=== PATIENT | female | born 1990 | race Caucasian/White ===

== ENCOUNTER 2017-01-23 21:13 | Emergency (ER) | payer SELFPAY ==
[~2017-01-23] VITALS: Ht 165.1 cm; Wt 63.5 kg
[~2017-01-23 21:13] MED LIST: ALLEGRA180 MG PO; AMOXICILLIN500 M2 PO; AMOXICILLIN500 MG PO; ANAPROX DS550 MG PO; BACTRIM DS 8001 TA1 PO; CIPRO500 MG PO; IBUPROFEN600 MG PO; KEFLEX500 MG PO; MOTRIN800 MG PO; Motrin,Rufen800 MG PO; NAPROSYN500 MG PO; NKHM; NORCO 325 MG-51 TAB PO; PENICILLIN VK500 MG PO; PHENERGAN W/DM120 ML PO; PREDNICOT10 MG PO; PRENATAL1 TA1 PO; PRENATAL1 TA3 PO; PROAIR HFA0.09 MG/AC INH; PYRIDIUM200 M1 PO; TOBREX OPHTH S2.5 ML OPH; TRAMADOL HCL50 MG PO; ULTRAM50 MG PO; Zofran4 MG PO
[2017-01-23] MEDS ORDERED: PRENATAL1 TA7 PO (21:19)
[2017-01-23] MEDS ORDERED: CEPHALEXIN500 M1 PO (21:32)
== END 2017-01-23 21:40 | disposition home or self-care (01) ==
LOC: ED 21:13
DX: O26.891 Other specified pregnancy related conditions, first trimester (principal); L02.412 Cutaneous abscess of left axilla; Z3A.10 10 weeks gestation of pregnancy

== ENCOUNTER 2017-01-29 10:39 | Emergency (ER) | payer SELFPAY ==
[~2017-01-29] VITALS: Ht 165.1 cm; Wt 63.5 kg
[~2017-01-29 10:39] MED LIST changes: +CEPHALEXIN500 M1 PO; +PRENATAL1 TA7 PO
[2017-01-29 11:13] LABS: BASO % 0.3 % (0.0-1.0); EOS # 0.1 10*3/uL (0.0-0.4); HEMOGLOBIN 14.2 g/dl (12.0-16.0); LYMPH # 1.9 10*3/uL (1.3-4.4); LYMPH % 30.5 % (27.0-41.0); MEAN CELL VOLUME 89.8 fl (81.0-99.0); MEAN CORPUSCULAR HGB 29.6 pg (27.0-31.0); MEAN PLATELET VOLUME 9.2 fl (9.6-12.3); MONO # 0.4 10*3/uL (0.1-1.0); MONO % 5.7 % (3.0-9.0); NEUT # 3.8 10*3/uL (2.3-7.9); NEUT % 62.3 % (47.0-73.0); PLATELET COUNT AUTOMATED 236 10*3/uL (130-400); RED BLOOD COUNT 4.79 10*6/uL (4.10-5.10); RED CELL DISTRI WIDTH 12.3 % (0-14.5); WHITE BLOOD COUNT 6.1 10*3/uL (4.8-10.8)
[2017-01-29 11:16] LABS: BILIRUBIN NEGATIVE (NEGATIVE); BLOOD 3+ (NEGATIVE); CLARITY SL CLOUDY (CLEAR); COLOR YELLOW (YELLOW); GLUCOSE NEGATIVE (NEGATIVE); KETONE NEGATIVE (NEGATIVE); LEUKO ESTERASE NEGATIVE (NEGATIVE); NITRITE NEGATIVE (NEGATIVE); PH 6.5 (5.0-9.0); PROTEIN NEGATIVE (NEGATIVE); UROBILINOGEN 0.2 E.U./dl (0.2-1.0)
[2017-01-29 11:26] LABS: ALBUMIN 3.6 gm/dl (3.1-4.5); BILIRUBIN, TOTAL 0.3 mg/dl (0.2-1.0); BUN 12 mg/dl (7-24); CARBON DIOXIDE 27 mmol/L (21-32); CHLORIDE 104 mmol/L (98-107); EST GLOM FILT AFRICAN AMERICAN > 60 ml/min; GLUCOSE 89 mg/dL (65-99); POTASSIUM 3.9 mmol/L (3.5-5.1); SGOT/AST 17 IU/L (3-35); SGPT/ALT 18 U/L (12-78); SODIUM 138 mmol/L (136-145); TOTAL PROTEIN 7.9 gm/dL (6.4-8.2)
[2017-01-29 11:30] LABS: URINE REFLEX COMMENT YES (NO)
[2017-01-29 11:46] LABS: ALKALINE PHOSPHATASE 46 U/L (45-117)
== END 2017-01-29 14:18 | disposition home or self-care (01) ==
LOC: ED 10:39
PROVIDERS: Nurse Practitioner Family
DX: O02.1 Missed abortion (principal); Z3A.12 12 weeks gestation of pregnancy

== ENCOUNTER 2017-05-13 11:31 | Inpatient (IN) | payer SELFPAY ==
[~2017-05-13] VITALS: Ht 165.1 cm; Wt 71.8 kg
[2017-05-13 11:46] VITALS: BP 113/79
[2017-05-13 12:10] LABS: BILIRUBIN NEGATIVE (NEGATIVE); BLOOD 3+ (NEGATIVE); CLARITY CLOUDY (CLEAR); COLOR YELLOW (YELLOW); GLUCOSE NEGATIVE (NEGATIVE); KETONE NEGATIVE (NEGATIVE); LEUKO ESTERASE 2+ (NEGATIVE); NITRITE POSITIVE (NEGATIVE); UROBILINOGEN 0.2 E.U./dl (0.2-1.0)
[2017-05-13 12:23] LABS: BACTERIA 4+; RBC TNTC rbc/hpf (0-2); WBC TNTC wbc/hpf (0-5)
[2017-05-13 12:50] VITALS: BP 116/67
[2017-05-13 12:52] LABS: BASO % 0.2 % (0.0-1.0); EOS % 0.1 % (1.0-4.0); HEMATOCRIT 36.9 % (37.0-47.0); LYMPH # 0.9 10*3/uL (1.3-4.4); LYMPH % 5.5 % (27.0-41.0); MEAN CELL VOLUME 88.3 fl (81.0-99.0); MEAN CORPUSCULAR HGB 28.7 pg (27.0-31.0); MEAN CORPUSCULAR HGB CONC 32.5 g/dl (33.0-37.0); MEAN PLATELET VOLUME 9.4 fl (9.6-12.3); MONO # 1.2 10*3/uL (0.1-1.0); MONO % 7.5 % (3.0-9.0); NEUT # 14.2 10*3/uL (2.3-7.9); NEUT % 86.4 % (47.0-73.0); PLATELET COUNT AUTOMATED 190 10*3/uL (130-400); RED BLOOD COUNT 4.18 10*6/uL (4.10-5.10); RED CELL DISTRI WIDTH 12.2 % (0-14.5); WHITE BLOOD COUNT 16.4 10*3/uL (4.8-10.8)
[2017-05-13 13:04] LABS: ALBUMIN 3.1 gm/dl (3.1-4.5); ALKALINE PHOSPHATASE 80 U/L (45-117); BUN 13 mg/dl (7-24); CHLORIDE 103 mmol/L (98-107); CREATININE 0.86 mg/dL (0.55-1.02); LIPASE 133 U/L (73-393); SGOT/AST 15 IU/L (3-35); SGPT/ALT 21 U/L (12-78); SODIUM 138 mmol/L (136-145); TOTAL PROTEIN 7.5 gm/dL (6.4-8.2)
[2017-05-13 13:06] LABS: BETA-HCG, QUANT < 1.0 mIU/mL (1-3)
[2017-05-13 15:35] VITALS: BP 119/58
[2017-05-13 15:58] VITALS: BP 105/55
--- NOTE | 2017-05-13 16:23 | NUR ---
A 27, admitted to , under the services of IRMA Allen DO with a diagnosis of PYELONEPHRITIS SEPSIS. Chief complaint is PYELONEPHRITIS SEPSIS. Patient arrived via bed from ER. Monitor applied. Initial assessment completed. Vital signs taken and recorded. IRMA ALLEN DO notified of admission to the unit. Orders received. See assessment for past medical history, medications and allergies. Patient and/or family oriented to unit. [facility] reviewed. Clothing/patient valuable form completed. ANGELA CARY
[2017-05-13 16:48] VITALS: BP 106/76
[2017-05-13 20:00] VITALS: BP 116/56
--- NOTE | 2017-05-13 20:00 | NUR ---
PT SITTING UP IN BED WITH C/O RUQ PAIN RATED 9/10. PT STATES PAIN IS SHARP DURING INSPIRATION. PT IS OTHERWISE CONTENT AND HAS NO OTHER NEEDS AT THIS TIME.
--- NOTE | 2017-05-13 20:28 | NUR ---
PT MEDICATED WITH NORCO FOR PAIN AND TEMPERATURE OF 100.3.
[2017-05-14] VITALS: BP 110/45
--- NOTE | 2017-05-14 04:20 | NUR ---
PT UNCOMFORTABLE AND UNABLE TO SLEEP D/T ABD PAIN. GIVEN MORPHINE AND RESTORIL.
[2017-05-14 05:43] LABS: ALBUMIN 2.6 gm/dl (3.1-4.5); ALKALINE PHOSPHATASE 68 U/L (45-117); BUN 6 mg/dl (7-24); CHLORIDE 109 mmol/L (98-107); CHOLESTEROL 100 mg/dL (<200); CREATININE 0.75 mg/dL (0.55-1.02); HDL CHOLESTEROL 53 mg/dl (40-60); LDL CHOLESTEROL 39 mg/dL (9-159); PHOSPHOROUS 2.3 mg/dL (2.5-4.9); POTASSIUM 3.8 mmol/L (3.5-5.1); SGOT/AST 11 IU/L (3-35); SGPT/ALT 17 U/L (12-78); SODIUM 144 mmol/L (136-145); TOTAL PROTEIN 6.3 gm/dL (6.4-8.2); TRIGLYCERIDES 40 mg/dl (<150); VLDL CHOLESTEROL 8 mg/dL (6-40)
[2017-05-14 05:48] LABS: THYROID STIM HORMONE (HS) 0.889 uIU/ml (0.358-4.75)
[2017-05-14 05:58] LABS: BASO % 0.2 % (0.0-1.0); EOS % 0.2 % (1.0-4.0); HEMATOCRIT 31.3 % (37.0-47.0); HEMOGLOBIN 10.3 g/dl (12.0-16.0); LYMPH # 1.8 10*3/uL (1.3-4.4); LYMPH % 15.9 % (27.0-41.0); MEAN CELL VOLUME 89.2 fl (81.0-99.0); MEAN CORPUSCULAR HGB 29.3 pg (27.0-31.0); MEAN CORPUSCULAR HGB CONC 32.9 g/dl (33.0-37.0); MEAN PLATELET VOLUME 9.5 fl (9.6-12.3); MONO # 1.5 10*3/uL (0.1-1.0); MONO % 12.6 % (3.0-9.0); NEUT # 8.2 10*3/uL (2.3-7.9); NEUT % 70.8 % (47.0-73.0); PLATELET COUNT AUTOMATED 178 10*3/uL (130-400); RED BLOOD COUNT 3.51 10*6/uL (4.10-5.10); RED CELL DISTRI WIDTH 12.1 % (0-14.5); WHITE BLOOD COUNT 11.6 10*3/uL (4.8-10.8)
[2017-05-14 06:54] LABS: VITAMIN D, 25-HYDROXY 8.5 ng/mL (30-100)
[2017-05-14 08:00] VITALS: BP 112/57
--- NOTE | 2017-05-14 08:00 | NUR ---
ASSUMED CARE OF PATIENT. SHE IS IN BED, AWAKE AND ALERT.
--- NOTE | 2017-05-14 08:13 | NUR ---
PT RECEIVED NORCO FOR PAIN STATED 9/10 IN RIGHT ABDOMEN.
--- NOTE | 2017-05-14 09:56 | NUR ---
PT STATES NORCO WAS EFFECTIVE.
--- NOTE | 2017-05-14 10:10 | NUR ---
PT RECEIVED MORPHINE FOR PAIN THAT WAS NOT RELIEVED BY NORCO. STATES PAIN IS RATED 8/10 STILL.
--- NOTE | 2017-05-14 10:15 | NUR ---
PT C/O RETURNING PAIN. MORPHINE GIVEN FOR PAIN RATED 9/10.
--- NOTE | 2017-05-14 11:01 | NUR ---
PT STATES MORPHINE HELPED SOME.
[2017-05-14 12:00] VITALS: BP 103/50
--- NOTE | 2017-05-14 12:15 | NUR ---
PT RECEIVED NORCO FOR PAIN RATED 9/10 IN THE ABDOMEN.
--- NOTE | 2017-05-14 13:00 | NUR ---
PT STATES DEMETRIA HELPED TAKE THE EDGE OFF HER PAIN.
[2017-05-14 16:00] VITALS: BP 116/57
--- NOTE | 2017-05-14 16:36 | NUR ---
PT RECEIVED NORCO FOR ABDOMINAL PAIN RATED 9/10.
--- NOTE | 2017-05-14 17:20 | NUR ---
PT STATES NORCO TOOK EDGE OFF, BUT STILL IN PAIN.
--- NOTE | 2017-05-14 17:41 | NUR ---
PT RECEIVED MORPHINE FOR PAIN IN ABDOMEN RATED AT 8/10.
--- NOTE | 2017-05-14 18:23 | NUR ---
PT STATES MORPHINE WAS EFFECTIVE.
[2017-05-14 20:00] VITALS: BP 120/60
--- NOTE | 2017-05-14 20:44 | NUR ---
MEDICATED WITH NORCO FOR C/O KIDNEY PAIN.
--- NOTE | 2017-05-14 21:45 | NUR ---
RESTING IN BED; VOICES NO C/O AT THIS TIME.
--- NOTE | 2017-05-14 22:13 | NUR ---
MEDICATED WITH MS FOR C/O PAIN RATED 8/10.
[2017-05-15] VITALS: BP 106/56
--- NOTE | 2017-05-15 | NUR ---
PT'S IV OCCLUDED; SEVERAL ATTEMPTS TO RESTART IV MADE. PT. CRYING & SWEARING WHILE ATTEMPTING TO RESTART IV. UNABLE TO RESTART IV AT THIS TIME. WILL CALL
--- NOTE | 2017-05-15 00:20 | NUR ---
CALLED DR. OROZCO PERTAINING TO BEING UNABLE TO RESTART IV. PO CIPRO ORDERED.
--- NOTE | 2017-05-15 05:48 | NUR ---
MEDICATED WITH NORCO FOR C/O PAIN.
[2017-05-15 06:25] LABS: BASO % 0.3 % (0.0-1.0); EOS # 0.1 10*3/uL (0.0-0.4); EOS % 0.5 % (1.0-4.0); HEMATOCRIT 31.9 % (37.0-47.0); HEMOGLOBIN 10.3 g/dl (12.0-16.0); LYMPH # 2.1 10*3/uL (1.3-4.4); LYMPH % 21.4 % (27.0-41.0); MEAN CELL VOLUME 87.4 fl (81.0-99.0); MEAN CORPUSCULAR HGB 28.2 pg (27.0-31.0); MEAN CORPUSCULAR HGB CONC 32.3 g/dl (33.0-37.0); MEAN PLATELET VOLUME 9.4 fl (9.6-12.3); MONO # 0.9 10*3/uL (0.1-1.0); MONO % 9.1 % (3.0-9.0); NEUT # 6.7 10*3/uL (2.3-7.9); NEUT % 68.3 % (47.0-73.0); PLATELET COUNT AUTOMATED 193 10*3/uL (130-400); RED BLOOD COUNT 3.65 10*6/uL (4.10-5.10); RED CELL DISTRI WIDTH 12.1 % (0-14.5); WHITE BLOOD COUNT 9.8 10*3/uL (4.8-10.8)
[2017-05-15 07:50] LABS: BUN 8 mg/dl (7-24); CHLORIDE 107 mmol/L (98-107); CREATININE 0.64 mg/dL (0.55-1.02); PHOSPHOROUS 3.3 mg/dL (2.5-4.9); POTASSIUM 3.6 mmol/L (3.5-5.1); SODIUM 142 mmol/L (136-145)
[2017-05-15 08:00] VITALS: BP 98/50
--- NOTE | 2017-05-15 08:47 | NUR ---
PT'S URINE CULTURE CAME BACK POSITIVE FOR ECOLI. PLACED PATIENT IN CONTACT ISO.
[2017-05-15] MEDS ORDERED: VITAMIN D-32000 UNIT PO (10:45)
[2017-05-15] MEDS ORDERED: CIPRO500 MG PO (10:45)
--- NOTE | 2017-05-15 10:47 | NUR ---
CHANGED PTS STATUS BACK TO STANDARD [facility].
--- NOTE | 2017-05-15 10:50 | NUR ---
PT RECEIVED NORCO FOR ABDOMINAL PAIN RATED 7/10.
[2017-05-15] MEDS ORDERED: IBU800 MG PO (10:53)
[2017-05-15 12:00] VITALS: BP 106/54
--- NOTE | 2017-05-15 12:50 | NUR ---
Discharge instructions reviewed with patient/family. Patient receptive and verbalizes understanding. Follow-up care arranged. Written instructions given to patient/family. Pt ambulated off the floor, was in stable condition. SUE JACOBS
== END 2017-05-15 12:50 | disposition home or self-care (01) | DRG 871 ==
LOC: ED 11:31 → EDHOLD 14:41 → 4E 14:41
PROVIDERS: Emergency Medicine; Hospitalist; Internal Medicine Nephrology; ADMIT Internal Medicine
DX: A41.9 Sepsis, unspecified organism (principal); E43 Unspecified severe protein-calorie malnutrition; N10 Acute pyelonephritis; R73.9 Hyperglycemia, unspecified; E55.9 Vitamin D deficiency, unspecified; B96.20 Unspecified Escherichia coli [E. coli] as the cause of diseases classified elsewhere; Z83.3 Family history of diabetes mellitus; Z82.49 Family history of ischemic heart disease and other diseases of the circulatory system; Z82.3 Family history of stroke; Z80.9 Family history of malignant neoplasm, unspecified; Z82.5 Family history of asthma and other chronic lower respiratory diseases; Z68.26 Body mass index [BMI] 26.0-26.9, adult

== ENCOUNTER 2017-09-14 18:48 | Emergency (ER) | payer SELFPAY ==
[~2017-09-14] VITALS: Wt 61.2 kg
[~2017-09-14 18:48] MED LIST changes: +IBU800 MG PO; +VITAMIN D-32000 UNIT PO
[2017-09-14 19:10] LABS: BILIRUBIN NEGATIVE (NEGATIVE); BLOOD NEGATIVE (NEGATIVE); CLARITY CLEAR (CLEAR); COLOR YELLOW (YELLOW); GLUCOSE NEGATIVE (NEGATIVE); KETONE TRACE (NEGATIVE); LEUKO ESTERASE NEGATIVE (NEGATIVE); NITRITE NEGATIVE (NEGATIVE); SPECIFIC GRAVITY 1.015 (1.005-1.030); UROBILINOGEN 0.2 E.U./dl (0.2-1.0)
[2017-09-14 19:26] LABS: BACTERIA TRACE; EPITHELIAL CELLS TNTC; MUCOUS 1+; YEAST TRACE
[2017-09-14 19:32] LABS: BASO % 0.2 % (0.0-1.0); HEMATOCRIT 39.5 % (37.0-47.0); HEMOGLOBIN 12.7 g/dl (12.0-16.0); LYMPH # 0.9 10*3/uL (1.3-4.4); MEAN CELL VOLUME 86.4 fl (81.0-99.0); MEAN CORPUSCULAR HGB 27.8 pg (27.0-31.0); MEAN CORPUSCULAR HGB CONC 32.2 g/dl (33.0-37.0); MEAN PLATELET VOLUME 9.5 fl (9.6-12.3); MONO # 0.7 10*3/uL (0.1-1.0); MONO % 5.6 % (3.0-9.0); NEUT # 11.1 10*3/uL (2.3-7.9); PLATELET COUNT AUTOMATED 197 10*3/uL (130-400); RED BLOOD COUNT 4.57 10*6/uL (4.10-5.10); RED CELL DISTRI WIDTH 13.4 % (0-14.5); WHITE BLOOD COUNT 12.8 10*3/uL (4.8-10.8)
[2017-09-14 19:55] LABS: ALBUMIN 3.4 gm/dl (3.1-4.5); ALKALINE PHOSPHATASE 76 U/L (45-117); BUN 13 mg/dl (7-24); CHLORIDE 102 mmol/L (98-107); CREATININE 0.96 mg/dL (0.55-1.02); LIPASE 103 U/L (73-393); POTASSIUM 3.8 mmol/L (3.5-5.1); SGOT/AST 13 IU/L (3-35); SGPT/ALT 16 U/L (12-78); SODIUM 137 mmol/L (136-145); TOTAL PROTEIN 7.4 gm/dL (6.4-8.2)
[2017-09-14] MEDS ORDERED: FLUCONAZOLE100 MG PO (21:58)
[2017-09-14] MEDS ORDERED: FLAGYL500 MG PO (21:58)
[2017-09-14] MEDS ORDERED: CIPRO250 MG PO (21:58)
== END 2017-09-14 22:08 | disposition home or self-care (01) ==
LOC: ED 18:48
PROVIDERS: Emergency Medicine; Nurse Practitioner Family
DX: K52.9 Noninfective gastroenteritis and colitis, unspecified (principal); B37.3 Candidiasis of vulva and vagina; R10.31 Right lower quadrant pain; Z79.899 Other long term (current) drug therapy

== ENCOUNTER 2018-01-11 21:24 | Emergency (ER) | payer SELFPAY ==
[~2018-01-11] VITALS: Ht 165.1 cm; Wt 68.0 kg
[~2018-01-11 21:24] MED LIST changes: +CIPRO250 MG PO; +FLAGYL500 MG PO; +FLUCONAZOLE100 MG PO
[2018-01-11 21:56] LABS: BASO % 0.3 % (0.0-1.0); EOS % 0.1 % (1.0-4.0); HEMOGLOBIN 13.2 g/dl (12.0-16.0); LYMPH # 1.5 10*3/uL (1.3-4.4); LYMPH % 14.9 % (27.0-41.0); MEAN CELL VOLUME 86.1 fl (81.0-99.0); MEAN CORPUSCULAR HGB 27.7 pg (27.0-31.0); MEAN CORPUSCULAR HGB CONC 32.2 g/dl (33.0-37.0); MEAN PLATELET VOLUME 9.4 fl (9.6-12.3); MONO # 0.5 10*3/uL (0.1-1.0); MONO % 4.9 % (3.0-9.0); NEUT % 79.6 % (47.0-73.0); PLATELET COUNT AUTOMATED 210 10*3/uL (130-400); RED BLOOD COUNT 4.76 10*6/uL (4.10-5.10); RED CELL DISTRI WIDTH 13.4 % (0-14.5)
[2018-01-11 22:13] LABS: ALBUMIN 3.7 gm/dl (3.1-4.5); ALKALINE PHOSPHATASE 54 U/L (45-117); BUN 13 mg/dl (7-24); CHLORIDE 105 mmol/L (98-107); CREATININE 0.95 mg/dL (0.55-1.02); POTASSIUM 3.6 mmol/L (3.5-5.1); SGOT/AST 10 IU/L (3-35); SGPT/ALT 15 U/L (12-78); SODIUM 137 mmol/L (136-145)
== END 2018-01-11 23:41 | disposition left against medical advice (07) ==
LOC: ED 21:24
PROVIDERS: Physician Assistant
DX: Z32.01 Encounter for pregnancy test, result positive (principal); N93.9 Abnormal uterine and vaginal bleeding, unspecified; R10.2 Pelvic and perineal pain; Z79.899 Other long term (current) drug therapy

== ENCOUNTER 2018-05-01 20:36 | Emergency (ER) | payer SELFPAY ==
[~2018-05-01] VITALS: Ht 165.1 cm; Wt 68.0 kg
[2018-05-01] MEDS ORDERED: Motrin,Rufen800 MG PO (21:25)
[2018-05-01] MEDS ORDERED: PENICILLIN VK500 MG PO (21:25)
== END 2018-05-01 21:35 | disposition home or self-care (01) ==
LOC: ED 20:36
DX: K02.9 Dental caries, unspecified (principal); Z79.2 Long term (current) use of antibiotics; Z79.899 Other long term (current) drug therapy

== ENCOUNTER 2018-06-02 13:04 | Inpatient (IN) | payer SELFPAY ==
[~2018-06-02] VITALS: Ht 165.1 cm; Wt 73.0 kg
[2018-06-02 13:04] VITALS: BP 106/73
[2018-06-02 14:03] LABS: ALBUMIN 3.9 gm/dl (3.1-4.5); ALKALINE PHOSPHATASE 84 U/L (45-117); BUN 14 mg/dl (7-24); CHLORIDE 108 mmol/L (98-107); CREATININE 0.86 mg/dL (0.55-1.02); POTASSIUM 3.7 mmol/L (3.5-5.1); SGOT/AST 16 IU/L (3-35); SGPT/ALT 16 U/L (12-78); SODIUM 139 mmol/L (136-145); TOTAL PROTEIN 8.1 gm/dL (6.4-8.2)
[2018-06-02 14:04] LABS: ETHYL ALCOHOL < 3.0 mg/dl (<3)
[2018-06-02 14:11] LABS: THYROID STIM HORMONE (HS) 0.376 uIU/ml (0.358-4.75)
[2018-06-02 14:13] LABS: URINE AMPHETAMINES < 1000 (1000ng/ml); URINE BARBITURATES < 200 (200ng/ml); URINE BENZODIAZEPINES > 200 (200ng/ml); URINE CANNABINOIDS (THC) < 50 (50ng/ml); URINE COCAINE < 300 (300ng/ml); URINE METHADONE < 300 (300ng/ml); URINE OPIATES < 300 (300ng/ml); URINE PHENCYCLIDINE < 25 (25ng/ml)
[2018-06-02 14:34] LABS: BASO % 0.2 % (0.0-1.0); EOS % 0.2 % (1.0-4.0); HEMATOCRIT 41.5 % (37.0-47.0); HEMOGLOBIN 13.1 g/dl (12.0-16.0); LYMPH # 1.1 10*3/uL (1.3-4.4); LYMPH % 9.1 % (27.0-41.0); MEAN CELL VOLUME 82.8 fl (81.0-99.0); MEAN CORPUSCULAR HGB 26.1 pg (27.0-31.0); MEAN CORPUSCULAR HGB CONC 31.6 g/dl (33.0-37.0); MEAN PLATELET VOLUME 9.3 fl (9.6-12.3); MONO # 0.2 10*3/uL (0.1-1.0); MONO % 1.9 % (3.0-9.0); NEUT # 10.6 10*3/uL (2.3-7.9); NEUT % 88.2 % (47.0-73.0); PLATELET COUNT AUTOMATED 290 10*3/uL (130-400); RED BLOOD COUNT 5.01 10*6/uL (4.10-5.10); RED CELL DISTRI WIDTH 14.6 % (0-14.5); WHITE BLOOD COUNT 12.1 10*3/uL (4.8-10.8)
[2018-06-02 14:52] VITALS: BP 118/59
[2018-06-02 16:00] VITALS: BP 119/68
[2018-06-02 18:13] LABS: BILIRUBIN NEGATIVE (NEGATIVE); BLOOD 1+ (NEGATIVE); CLARITY CLOUDY (CLEAR); COLOR YELLOW (YELLOW); GLUCOSE NEGATIVE (NEGATIVE); KETONE 2+ (NEGATIVE); LEUKO ESTERASE NEGATIVE (NEGATIVE); NITRITE NEGATIVE (NEGATIVE); PH 5.5 (5.0-9.0); SPECIFIC GRAVITY >= 1.030 (1.005-1.030); UROBILINOGEN 0.2 E.U./dl (0.2-1.0)
[2018-06-02 18:35] LABS: BACTERIA TRACE
[2018-06-02 20:00] VITALS: BP 117/59
[2018-06-03] VITALS: BP 104/45
[2018-06-03 05:55] LABS: BASO % 0.1 % (0.0-1.0); HEMATOCRIT 39.6 % (37.0-47.0); HEMOGLOBIN 12.4 g/dl (12.0-16.0); LYMPH # 1.8 10*3/uL (1.3-4.4); LYMPH % 11.9 % (27.0-41.0); MEAN CORPUSCULAR HGB 25.7 pg (27.0-31.0); MEAN CORPUSCULAR HGB CONC 31.3 g/dl (33.0-37.0); MEAN PLATELET VOLUME 9.3 fl (9.6-12.3); MONO # 0.6 10*3/uL (0.1-1.0); MONO % 4.2 % (3.0-9.0); NEUT # 12.7 10*3/uL (2.3-7.9); NEUT % 83.5 % (47.0-73.0); PLATELET COUNT AUTOMATED 262 10*3/uL (130-400); RED BLOOD COUNT 4.83 10*6/uL (4.10-5.10); RED CELL DISTRI WIDTH 14.9 % (0-14.5); WHITE BLOOD COUNT 15.2 10*3/uL (4.8-10.8)
[2018-06-03 07:24] VITALS: BP 110/62
[2018-06-03 12:03] VITALS: BP 121/64
[2018-06-03 16:00] VITALS: BP 115/56
[2018-06-03 20:00] VITALS: BP 117/62
[2018-06-04] VITALS: BP 106/50
[2018-06-04 08:00] VITALS: BP 97/57
[2018-06-04 16:00] VITALS: BP 129/55
[2018-06-04 20:00] VITALS: BP 117/59
[2018-06-05] VITALS: BP 119/61
[2018-06-05 06:05] LABS: BASO # 0.1 10*3/uL (0.0-0.1); BASO % 0.6 % (0.0-1.0); EOS % 0.3 % (1.0-4.0); HEMATOCRIT 39.6 % (37.0-47.0); HEMOGLOBIN 12.2 g/dl (12.0-16.0); LYMPH # 3.3 10*3/uL (1.3-4.4); LYMPH % 38.5 % (27.0-41.0); MEAN CELL VOLUME 82.8 fl (81.0-99.0); MEAN CORPUSCULAR HGB 25.5 pg (27.0-31.0); MEAN CORPUSCULAR HGB CONC 30.8 g/dl (33.0-37.0); MEAN PLATELET VOLUME 9.4 fl (9.6-12.3); MONO # 0.6 10*3/uL (0.1-1.0); MONO % 7.3 % (3.0-9.0); NEUT # 4.5 10*3/uL (2.3-7.9); NEUT % 52.8 % (47.0-73.0); PLATELET COUNT AUTOMATED 238 10*3/uL (130-400); RED BLOOD COUNT 4.78 10*6/uL (4.10-5.10); WHITE BLOOD COUNT 8.6 10*3/uL (4.8-10.8)
[2018-06-05 06:16] LABS: CREATININE 1.13 mg/dL (0.55-1.02)
[2018-06-05] MEDS ORDERED: DICYCLOMINE HCL20 MG PO (07:36)
[2018-06-05] MEDS ORDERED: ATARAX,VISTARIL50 MG PO (07:36)
[2018-06-05] MEDS ORDERED: ZOFRAN 4 MG ED2 TAB PO (07:36)
[2018-06-05 07:46] VITALS: BP 109/66
== END 2018-06-05 11:35 | disposition home or self-care (01) | DRG 897 ==
LOC: ED 13:04 → 4E 14:03 → EDHOLD 14:03 → 4E 14:24
PROVIDERS: Emergency Medicine; Internal Medicine
DX: F11.23 Opioid dependence with withdrawal (principal); D72.829 Elevated white blood cell count, unspecified; F41.9 Anxiety disorder, unspecified; G25.81 Restless legs syndrome; Z82.5 Family history of asthma and other chronic lower respiratory diseases; Z82.49 Family history of ischemic heart disease and other diseases of the circulatory system; Z79.2 Long term (current) use of antibiotics; Z79.899 Other long term (current) drug therapy

== ENCOUNTER 2018-07-20 14:08 | Emergency (ER) | payer OTHER ==
[~2018-07-20] VITALS: Wt 70.3 kg
[~2018-07-20 14:08] MED LIST changes: +ATARAX,VISTARIL50 MG PO; +DICYCLOMINE HCL20 MG PO; +ZOFRAN 4 MG ED2 TAB PO
[2018-07-20 14:41] LABS: BILIRUBIN NEGATIVE (NEGATIVE); BLOOD 3+ (NEGATIVE); CLARITY CLOUDY (CLEAR); COLOR YELLOW (YELLOW); GLUCOSE NEGATIVE (NEGATIVE); KETONE 1+ (NEGATIVE); LEUKO ESTERASE 1+ (NEGATIVE); NITRITE NEGATIVE (NEGATIVE); SPECIFIC GRAVITY >= 1.030 (1.005-1.030); UROBILINOGEN 0.2 E.U./dl (0.2-1.0)
[2018-07-20 14:47] LABS: BACTERIA 2+; EPITHELIAL CELLS 0-2; RBC TNTC rbc/hpf (0-2); WBC TNTC wbc/hpf (0-5)
[2018-07-20 14:48] LABS: MUCOUS TRACE
[2018-07-20] MEDS ORDERED: CEPHALEXIN500 M1 PO (15:03)
[2018-07-20] MEDS ORDERED: PYRIDIUM100 MG PO (15:11)
== END 2018-07-20 14:34 | disposition home or self-care (01) ==
LOC: ED 14:08
PROVIDERS: Nurse Practitioner Family
DX: O23.41 Unspecified infection of urinary tract in pregnancy, first trimester (principal); Z3A.01 Less than 8 weeks gestation of pregnancy

== ENCOUNTER 2018-12-15 20:56 | Emergency (ER) | payer OTHER ==
[~2018-12-15] VITALS: Ht 165.1 cm; Wt 85.7 kg
[~2018-12-15 20:56] MED LIST changes: +PYRIDIUM100 MG PO
[2018-12-15] MEDS ORDERED: CLINDAMYCIN HC300 MG PO (21:27)
[2018-12-15] MEDS ORDERED: IBU800 MG PO (21:27)
== END 2018-12-15 21:44 | disposition home or self-care (01) ==
LOC: ED 20:56
DX: K02.9 Dental caries, unspecified (principal)

== ENCOUNTER 2019-06-27 23:14 | Emergency (ER) | payer SELFPAY ==
[~2019-06-27] VITALS: Ht 165.1 cm; Wt 77.1 kg
[~2019-06-27 23:14] MED LIST changes: +CLINDAMYCIN HC300 MG PO
[2019-06-27] MEDS ORDERED: METHADONE HYDRO10 MG PO (23:36)
== END 2019-06-28 00:45 | disposition left against medical advice (07) ==
LOC: ED 23:14
DX: R11.2 Nausea with vomiting, unspecified (principal); R19.7 Diarrhea, unspecified; Z53.21 Procedure and treatment not carried out due to patient leaving prior to being seen by health care provider; Z79.899 Other long term (current) drug therapy

== ENCOUNTER 2019-07-09 15:26 | Emergency (ER) | payer SELFPAY ==
[~2019-07-09] VITALS: Ht 165.1 cm; Wt 76.2 kg
[~2019-07-09 15:26] MED LIST changes: +METHADONE HYDRO10 MG PO
== END 2019-07-09 17:12 | disposition home or self-care (01) ==
LOC: ED 15:26
DX: S90.32XA Contusion of left foot, initial encounter (principal); Z79.899 Other long term (current) drug therapy; W20.8XXA Other cause of strike by thrown, projected or falling object, initial encounter; Y93.89 Activity, other specified; Y92.89 Other specified places as the place of occurrence of the external cause; Y99.8 Other external cause status

== ENCOUNTER 2019-10-29 18:18 | Emergency (ER) | payer OTHER ==
[~2019-10-29] VITALS: Ht 165.1 cm; Wt 79.4 kg
[2019-10-29] MEDS ORDERED: AUGMENTIN 875875 MG PO (18:53)
== END 2019-10-29 19:15 | disposition home or self-care (01) ==
LOC: ED 18:18
DX: K04.7 Periapical abscess without sinus (principal); K02.9 Dental caries, unspecified; F17.200 Nicotine dependence, unspecified, uncomplicated

== ENCOUNTER 2020-01-07 23:54 | Emergency (ER) | payer OTHER ==
[~2020-01-07] VITALS: Ht 165.1 cm; Wt 79.4 kg
[~2020-01-07 23:54] MED LIST changes: +AUGMENTIN 875875 MG PO
[2020-01-08 01:47] LABS: BASO % 0.2 % (0.0-1.0); EOS % 0.1 % (1.0-4.0); HEMATOCRIT 35.1 % (37.0-47.0); LYMPH # 1.4 10*3/uL (1.3-4.4); LYMPH % 6.9 % (27.0-41.0); MEAN CORPUSCULAR HGB 26.6 pg (27.0-31.0); MEAN CORPUSCULAR HGB CONC 31.6 g/dl (33.0-37.0); MEAN PLATELET VOLUME 9.9 fl (9.6-12.3); MONO # 1.1 10*3/uL (0.1-1.0); MONO % 5.1 % (3.0-9.0); NEUT # 18.2 10*3/uL (2.3-7.9); NEUT % 87.1 % (47.0-73.0); PLATELET COUNT AUTOMATED 247 10*3/uL (130-400); RED BLOOD COUNT 4.18 10*6/uL (4.10-5.10); RED CELL DISTRI WIDTH 13.3 % (0-14.5); WHITE BLOOD COUNT 20.9 10*3/uL (4.8-10.8)
[2020-01-08 02:04] LABS: ALBUMIN 2.7 gm/dl (3.1-4.5); ALKALINE PHOSPHATASE 55 U/L (45-117); BUN 11 mg/dl (7-24); CHLORIDE 109 mmol/L (98-107); CREATININE 0.64 mg/dL (0.55-1.02); POTASSIUM 3.7 mmol/L (3.5-5.1); SGOT/AST 16 IU/L (3-35); SGPT/ALT 12 U/L (12-78); SODIUM 137 mmol/L (136-145); TOTAL PROTEIN 7.1 gm/dL (6.4-8.2)
== END 2020-01-08 04:07 | disposition short-term general hospital (02) ==
LOC: ED 23:54
PROVIDERS: Emergency Medicine Emergency Medical Services
DX: O03.9 Complete or unspecified spontaneous abortion without complication (principal); D72.829 Elevated white blood cell count, unspecified; Z79.899 Other long term (current) drug therapy

== ENCOUNTER 2020-04-05 17:32 | Emergency (ER) | payer OTHER ==
[~2020-04-05] VITALS: Ht 165.1 cm; Wt 71.7 kg
[2020-04-05 19:06] LABS: BASO % 0.2 % (0.0-1.0); EOS # 0.1 10*3/uL (0.0-0.4); EOS % 1.5 % (1.0-4.0); HEMATOCRIT 36.7 % (37.0-47.0); LYMPH # 1.3 10*3/uL (1.3-4.4); LYMPH % 14.4 % (27.0-41.0); MEAN CELL VOLUME 78.4 fl (81.0-99.0); MEAN CORPUSCULAR HGB CONC 28.1 g/dl (33.0-37.0); MEAN PLATELET VOLUME 10.3 fl (9.6-12.3); MONO # 0.5 10*3/uL (0.1-1.0); MONO % 5.9 % (3.0-9.0); NEUT # 7.1 10*3/uL (2.3-7.9); NEUT % 77.8 % (47.0-73.0); PLATELET COUNT AUTOMATED 280 10*3/uL (130-400); RED BLOOD COUNT 4.68 10*6/uL (4.10-5.10); WHITE BLOOD COUNT 9.2 10*3/uL (4.8-10.8)
[2020-04-05 19:27] LABS: BILIRUBIN Negative (Negative); BLOOD Negative (Negative); CLARITY Turbid (Clear); COLOR Dark Yellow (Yellow); GLUCOSE Negative (Negative); KETONE Trace (Negative); LEUKO ESTERASE Trace (Negative); NITRITE Negative (Negative); PH 5.5 (4.5-8.0); SPECIFIC GRAVITY >= 1.030 (1.001-1.030)
[2020-04-05 19:33] LABS: ALBUMIN 3.2 gm/dl (3.1-4.5); ALKALINE PHOSPHATASE 68 U/L (45-117); BUN 13 mg/dl (7-24); CHLORIDE 108 mmol/L (98-107); CREATININE 0.72 mg/dL (0.55-1.02); LIPASE 298 U/L (73-393); POTASSIUM 3.9 mmol/L (3.5-5.1); SGOT/AST 29 IU/L (3-35); SGPT/ALT 31 U/L (12-78); SODIUM 141 mmol/L (136-145); TOTAL PROTEIN 7.3 gm/dL (6.4-8.2)
[2020-04-05 20:08] LABS: BACTERIA 1+; EPITHELIAL CELLS 0-2; WBC 0-2 wbc/hpf (0-5)
== END 2020-04-06 01:20 | disposition home or self-care (01) ==
LOC: ED 17:32
PROVIDERS: Emergency Medicine
DX: R11.10 Vomiting, unspecified (principal); R19.7 Diarrhea, unspecified; R10.11 Right upper quadrant pain; Z79.899 Other long term (current) drug therapy

== ENCOUNTER 2020-09-09 23:51 | Emergency (ER) | payer OTHER ==
[~2020-09-09] VITALS: Ht 165.1 cm; Wt 67.1 kg
[2020-09-10 00:35] LABS: BILIRUBIN Negative (Negative); BLOOD Trace-Lysed (Negative); CLARITY Turbid (Clear); COLOR Yellow (Yellow); GLUCOSE Negative (Negative); KETONE Negative (Negative); LEUKO ESTERASE 2+ (Negative); NITRITE Positive (Negative); UROBILINOGEN 0.2 E.U./dl (0.0-1.0)
[2020-09-10 00:47] LABS: BACTERIA 2+; EPITHELIAL CELLS TNTC
[2020-09-10 00:47] LABS: BASO % 0.1 % (0.0-1.0); EOS # 0.1 10*3/uL (0.0-0.4); EOS % 1.1 % (1.0-4.0); HEMATOCRIT 38.5 % (37.0-47.0); LYMPH # 1.3 10*3/uL (1.3-4.4); LYMPH % 13.9 % (27.0-41.0); MEAN CELL VOLUME 83.3 fl (81.0-99.0); MEAN CORPUSCULAR HGB 24.7 pg (27.0-31.0); MEAN CORPUSCULAR HGB CONC 29.6 g/dl (33.0-37.0); MEAN PLATELET VOLUME 9.9 fl (9.6-12.3); MONO # 0.5 10*3/uL (0.1-1.0); MONO % 4.9 % (3.0-9.0); NEUT # 7.5 10*3/uL (2.3-7.9); NEUT % 79.8 % (47.0-73.0); PLATELET COUNT AUTOMATED 209 10*3/uL (130-400); RED BLOOD COUNT 4.62 10*6/uL (4.10-5.10); WHITE BLOOD COUNT 9.4 10*3/uL (4.8-10.8)
[2020-09-10 01:04] LABS: ALBUMIN 3.3 gm/dl (3.1-4.5); ALKALINE PHOSPHATASE 90 U/L (45-117); BUN 18 mg/dl (7-24); CHLORIDE 110 mmol/L (98-107); CREATININE 0.86 mg/dL (0.55-1.02); LIPASE 86 U/L (73-393); SGOT/AST 16 IU/L (3-35); SGPT/ALT 15 U/L (12-78); SODIUM 143 mmol/L (136-145); TOTAL PROTEIN 7.4 gm/dL (6.4-8.2)
[2020-09-10] MEDS ORDERED: CIPRO500 MG PO (01:13)
[2020-09-10] MEDS ORDERED: OMEPRAZOLE40 MG PO (01:13)
== END 2020-09-10 01:22 | disposition home or self-care (01) ==
LOC: ED 23:51
PROVIDERS: Internal Medicine
DX: N39.0 Urinary tract infection, site not specified (principal); K21.9 Gastro-esophageal reflux disease without esophagitis; Z79.899 Other long term (current) drug therapy; Z98.890 Other specified postprocedural states

== ENCOUNTER 2021-11-24 18:00 | Emergency (ER) | payer OTHER ==
[~2021-11-24] VITALS: Wt 72.6 kg
[~2021-11-24 18:00] MED LIST changes: +OMEPRAZOLE40 MG PO
[2021-11-24 19:00] LABS: BASO % 0.4 % (0.0-1.0); EOS # 0.1 10*3/uL (0.0-0.4); EOS % 1.7 % (1.0-4.0); LYMPH # 2.2 10*3/uL (1.3-4.4); LYMPH % 29.4 % (27.0-41.0); MEAN CELL VOLUME 85.8 fl (81.0-99.0); MEAN CORPUSCULAR HGB 27.8 pg (27.0-31.0); MEAN CORPUSCULAR HGB CONC 32.4 g/dl (33.0-37.0); MEAN PLATELET VOLUME 9.3 fl (9.6-12.3); MONO # 0.5 10*3/uL (0.1-1.0); MONO % 5.9 % (3.0-9.0); NEUT # 4.8 10*3/uL (2.3-7.9); NEUT % 62.5 % (47.0-73.0); PLATELET COUNT AUTOMATED 216 10*3/uL (130-400); RED BLOOD COUNT 4.31 10*6/uL (4.10-5.10); RED CELL DISTRI WIDTH 12.7 % (0-14.5); WHITE BLOOD COUNT 7.6 10*3/uL (4.8-10.8)
[2021-11-24 19:15] LABS: ALKALINE PHOSPHATASE 65 U/L (45-117); BUN 15 mg/dl (7-24); CHLORIDE 106 mmol/L (98-107); CREATININE 0.96 mg/dL (0.55-1.02); LIPASE 104 U/L (73-393); POTASSIUM 4.1 mmol/L (3.5-5.1); SGOT/AST 6 IU/L (3-35); SGPT/ALT 18 U/L (12-78); SODIUM 138 mmol/L (136-145); TOTAL PROTEIN 6.8 gm/dL (6.4-8.2)
[2021-11-24 19:18] LABS: B-hCG (QUALITATIVE) NEGATIVE (NEGATIVE)
[2021-11-24 20:38] LABS: BILIRUBIN Negative (Negative); BLOOD 1+ (Negative); CLARITY Cloudy (Clear); COLOR Yellow (Yellow); GLUCOSE Negative (Negative); KETONE Negative (Negative); LEUKO ESTERASE 1+ (Negative); NITRITE Negative (Negative); PH 6.5 (4.5-8.0); UROBILINOGEN 0.2 E.U./dl (0.0-1.0)
[2021-11-24 20:55] LABS: BACTERIA 2+
== END 2021-11-24 21:06 | disposition home or self-care (01) ==
LOC: ED 18:00
PROVIDERS: Emergency Medicine
DX: N39.0 Urinary tract infection, site not specified (principal); R00.1 Bradycardia, unspecified; K21.9 Gastro-esophageal reflux disease without esophagitis; Z79.899 Other long term (current) drug therapy

== ENCOUNTER 2022-05-07 20:45 | Emergency (ER) | payer OTHER ==
[~2022-05-07] VITALS: Ht 165.1 cm; Wt 72.6 kg
[2022-05-07 21:27] LABS: BASO % 0.5 % (0.0-1.0); EOS # 0.1 10*3/uL (0.0-0.4); EOS % 2.1 % (1.0-4.0); HEMATOCRIT 39.4 % (37.0-47.0); LYMPH # 2.6 10*3/uL (1.3-4.4); LYMPH % 41.8 % (27.0-41.0); MEAN CELL VOLUME 87.8 fl (81.0-99.0); MEAN CORPUSCULAR HGB 28.5 pg (27.0-31.0); MEAN CORPUSCULAR HGB CONC 32.5 g/dl (33.0-37.0); MEAN PLATELET VOLUME 8.5 fl (9.6-12.3); MONO # 0.4 10*3/uL (0.1-1.0); MONO % 6.5 % (3.0-9.0); NEUT % 48.9 % (47.0-73.0); PLATELET COUNT AUTOMATED 252 10*3/uL (130-400); RED BLOOD COUNT 4.49 10*6/uL (4.10-5.10); RED CELL DISTRI WIDTH 12.9 % (0-14.5); WHITE BLOOD COUNT 6.2 10*3/uL (4.8-10.8)
[2022-05-07 21:41] LABS: ALKALINE PHOSPHATASE 63 U/L (45-117); BUN 17 mg/dl (7-24); CHLORIDE 104 mmol/L (98-107); CREATININE 0.78 mg/dL (0.55-1.02); POTASSIUM 3.9 mmol/L (3.5-5.1); SGOT/AST 14 IU/L (3-35); SGPT/ALT 16 U/L (12-78); SODIUM 137 mmol/L (136-145); TOTAL PROTEIN 7.5 gm/dL (6.4-8.2)
[2022-05-07] MEDS ORDERED: AMOXICILLIN500 M2 PO (22:11)
[2022-05-07] MEDS ORDERED: Motrin,Rufen800 MG PO (22:28)
== END 2022-05-07 22:19 | disposition home or self-care (01) ==
LOC: ED 20:45
PROVIDERS: Physician Assistant
DX: K04.7 Periapical abscess without sinus (principal)

== ENCOUNTER 2024-06-14 19:12 | Emergency (ER) | payer SELFPAY ==
[~2024-06-14] VITALS: Ht 165.1 cm; Wt 68.0 kg
[2024-06-14] MEDS ORDERED: Ondansetron Hydrochloride 4 MG/2 ML VIAL IV ONE (19:40)
[2024-06-14] MEDS ORDERED: SODIUM CHLORIDE 0.9% 1,000 ML IV ONE (19:40)
[2024-06-14 19:49] LABS: BASO % 0.1 % (0.0-1.0); HEMATOCRIT 38.8 % (37.0-47.0); MEAN CELL VOLUME 85.8 fl (81.0-99.0); MEAN CORPUSCULAR HGB 28.3 pg (27.0-31.0); MEAN PLATELET VOLUME 9.1 fl (9.6-12.3); MONO # 0.6 10*3/uL (0.1-1.0); MONO % 6.4 % (3.0-9.0); NEUT # 6.5 10*3/uL (2.3-7.9); NEUT % 74.2 % (47.0-73.0); PLATELET COUNT AUTOMATED 228 10*3/uL (130-400); RED BLOOD COUNT 4.52 10*6/uL (4.10-5.10); RED CELL DISTRI WIDTH 13.6 % (0-14.5); WHITE BLOOD COUNT 8.8 10*3/uL (4.8-10.8)
[2024-06-14 20:04] LABS: BILIRUBIN Negative (Negative); BLOOD Negative (Negative); CLARITY Cloudy (Clear); COLOR Dark Yellow (Yellow); GLUCOSE Negative (Negative); KETONE 3+ (Negative); LEUKO ESTERASE 1+ (Negative); NITRITE Negative (Negative); PH 5.5 (4.5-8.0); SPECIFIC GRAVITY >= 1.030 (1.001-1.030)
[2024-06-14 20:10] LABS: BUN 14 mg/dl (9-23); CHLORIDE 101 mmol/L (98-107); POTASSIUM 3.7 mmol/L (3.4-5.1)
[2024-06-14 20:11] LABS: BACTERIA 1+; MUCOUS 2+; URINE AMPHETAMINES Negative (1000ng/ml); URINE BARBITURATES Negative (200ng/ml); URINE BENZODIAZEPINES Positive (200ng/ml); URINE CANNABINOIDS (THC) Negative (50ng/ml); URINE COCAINE Positive (300ng/ml); URINE METHADONE Negative (300ng/ml); URINE OPIATES Positive (300ng/ml); URINE PHENCYCLIDINE Negative (25ng/ml)
[2024-06-14] MEDS ORDERED: CEPHALEXIN500 M1 PO (20:28)
[2024-06-14] MEDS ORDERED: Ondansetron4 MG PO (20:28)
== END 2024-06-14 20:45 | disposition home or self-care (01) ==
LOC: ED 19:12
PROVIDERS: Physician Assistant Medical
DX: O21.8 Other vomiting complicating pregnancy (principal); O23.41 Unspecified infection of urinary tract in pregnancy, first trimester; N39.0 Urinary tract infection, site not specified; Z3A.00 Weeks of gestation of pregnancy not specified

== ENCOUNTER 2024-06-28 21:41 | Emergency (ER) | payer SELFPAY ==
[~2024-06-28] VITALS: Ht 165.1 cm; Wt 67.8 kg
[~2024-06-28 21:41] MED LIST changes: +Ondansetron4 MG PO
[2024-06-28 22:11] LABS: BILIRUBIN Negative (Negative); BLOOD Negative (Negative); CLARITY Clear (Clear); COLOR Yellow (Yellow); GLUCOSE Negative (Negative); KETONE Negative (Negative); LEUKO ESTERASE 1+ (Negative); NITRITE Negative (Negative)
[2024-06-28 22:18] LABS: URINE AMPHETAMINES Negative (1000ng/ml); URINE BARBITURATES Negative (200ng/ml); URINE BENZODIAZEPINES Positive (200ng/ml); URINE CANNABINOIDS (THC) Negative (50ng/ml); URINE COCAINE Positive (300ng/ml); URINE METHADONE Negative (300ng/ml); URINE OPIATES Positive (300ng/ml); URINE PHENCYCLIDINE Negative (25ng/ml)
[2024-06-28] MEDS ORDERED: SODIUM CHLORIDE 0.9% 1,000 ML IV ONE (22:30)
[2024-06-28] MEDS ORDERED: Ondansetron Hydrochloride 4 MG/2 ML VIAL IV ONE (22:30)
[2024-06-28 22:54] LABS: BASO % 0.1 % (0.0-1.0); EOS # 0.1 10*3/uL (0.0-0.4); EOS % 0.6 % (1.0-4.0); HEMATOCRIT 35.7 % (37.0-47.0); MEAN CELL VOLUME 88.1 fl (81.0-99.0); MEAN CORPUSCULAR HGB 28.6 pg (27.0-31.0); MEAN CORPUSCULAR HGB CONC 32.5 g/dl (33.0-37.0); MEAN PLATELET VOLUME 9.4 fl (9.6-12.3); MONO # 0.5 10*3/uL (0.1-1.0); MONO % 5.9 % (3.0-9.0); NEUT # 5.7 10*3/uL (2.3-7.9); NEUT % 66.7 % (47.0-73.0); PLATELET COUNT AUTOMATED 221 10*3/uL (130-400); RED BLOOD COUNT 4.05 10*6/uL (4.10-5.10); RED CELL DISTRI WIDTH 13.5 % (0-14.5); WHITE BLOOD COUNT 8.5 10*3/uL (4.8-10.8)
[2024-06-28 23:28] LABS: BUN 9 mg/dl (9-23); CHLORIDE 108 mmol/L (98-107); POTASSIUM 4.4 mmol/L (3.4-5.1)
[2024-06-28 23:29] LABS: BACTERIA 2+; EPITHELIAL CELLS 16-20
[2024-06-29] MEDS ORDERED: AMOXICILLIN 500 MG PO ONE (00:15)
[2024-06-29] MEDS ORDERED: REGLAN10 M1 PO (00:41)
[2024-06-29] MEDS ORDERED: AMOXICILLIN500 M2 PO (00:42)
== END 2024-06-29 01:43 | disposition home or self-care (01) ==
LOC: ED 21:41
PROVIDERS: Emergency Medicine; Nurse Practitioner
DX: O23.41 Unspecified infection of urinary tract in pregnancy, first trimester (principal); N39.0 Urinary tract infection, site not specified; O21.9 Vomiting of pregnancy, unspecified; Z3A.01 Less than 8 weeks gestation of pregnancy

== ENCOUNTER 2024-10-28 20:37 | Emergency (ER) | payer SELFPAY ==
[~2024-10-28 20:37] MED LIST changes: +REGLAN10 M1 PO
[2024-10-28 20:58] LABS: BASO % 0.2 % (0.0-1.0); EOS # 0.1 10*3/uL (0.0-0.4); EOS % 0.4 % (1.0-4.0); HEMATOCRIT 31.4 % (37.0-47.0); MEAN CELL VOLUME 89.2 fl (81.0-99.0); MEAN CORPUSCULAR HGB 28.1 pg (27.0-31.0); MEAN CORPUSCULAR HGB CONC 31.5 g/dl (33.0-37.0); MEAN PLATELET VOLUME 9.5 fl (9.6-12.3); MONO # 0.7 10*3/uL (0.1-1.0); MONO % 5.9 % (3.0-9.0); NEUT # 9.2 10*3/uL (2.3-7.9); NEUT % 81.2 % (47.0-73.0); PLATELET COUNT AUTOMATED 188 10*3/uL (130-400); RED BLOOD COUNT 3.52 10*6/uL (4.10-5.10); RED CELL DISTRI WIDTH 13.2 % (0-14.5); WHITE BLOOD COUNT 11.4 10*3/uL (4.8-10.8)
[2024-10-28 21:16] LABS: BUN 8 mg/dl (9-23); CHLORIDE 104 mmol/L (98-107); POTASSIUM 3.9 mmol/L (3.4-5.1)
== END 2024-10-28 21:26 | disposition home or self-care (01) ==
LOC: ED 20:37
PROVIDERS: Physician Assistant Medical
DX: O99.891 Other specified diseases and conditions complicating pregnancy (principal); Z02.89 Encounter for other administrative examinations; Z3A.24 24 weeks gestation of pregnancy; Z79.899 Other long term (current) drug therapy; Z98.890 Other specified postprocedural states